=== PATIENT | male | born 1930 | race African-American/Black ===

== ENCOUNTER 2016-10-01 19:51 | Emergency (ER) | payer MEDICARE ==
[~2016-10-01] VITALS: Ht 175.3 cm; Wt 59.0 kg
[2016-10-01] MEDS ORDERED: CONTRAST GIVEN MC PRN (21:15)
[2016-10-01 21:30] LABS: BASO % 1 % (0-3); EOS % 1 % (0-3); HEMOGLOBIN 12.4 g/dL (13.0-17.5); LYMPH # 0.5 x10^3/uL (1.0-4.8); LYMPH % 14 % (24-48); MEAN CORPUSCULAR HEMOGLOBIN 33 pg (25-35); MEAN CORPUSCULAR HGB CONC 35 g/dL (31-37); MEAN CORPUSCULAR VOLUME 97 fL (79-100); MONO % 9 % (0-9); NEUT % 75 % (31-73); PLATELET COUNT 178 x10^3/uL (140-400); RED BLOOD COUNT 3.73 x10^6/uL (4.30-5.70); RED CELL DISTRIBUTION WIDTH 13.5 % (11.5-14.5); WHITE BLOOD COUNT 3.4 x10^3/uL (4.0-11.0)
[2016-10-01] MEDS ORDERED: IOHEXOL 300 MG/ML 75 ML VIAL IV ONE (21:30)
[2016-10-01 21:39] LABS: GFR 85.9; POTASSIUM 3.8 mmol/L (3.5-5.1)
[2016-10-01 21:45] LABS: ALBUMIN 3.2 g/dL (3.4-5.0); ALBUMIN/GLOBULIN RATIO 0.8 (1.0-1.7); TOTAL BILIRUBIN 0.4 mg/dL (0.2-1.0); TOTAL PROTEIN 7.4 g/dL (6.4-8.2)
--- NOTE | 2016-10-01 21:57 | ED.ADGEN ---
Past Medical History Past Medical History: GERD, Hypertension, Other Additional Past Medical Histor: high cholesterol,prostate CA Past Surgical History: Other Additional Past Surgical Histo: hernia,prostate Alcohol Use: Occasionally Drug Use: None Adult General Chief Complaint Chief Complaint: ABDOMINAL PAIN HPI HPI Patient is a 86 year old man, history of hypertension, GERD, prostate CVA, who presents to the emergency department with a complaint of sudden onset of abdominal pain which is now resolved. Patient states that several hours ago, about 40 minutes after eating a meal of ribs, he began experiencing severe lower abdominal pain. He states that he felt as though he was going to pass out due to the severity of the pain, became diaphoretic. He states he did not actually pass out, and that the pain slowly eased up and is now currently fully resolved. Patient was convinced to come to the emergency department for evaluation by his family. He denies any chest pain, any shortness of breath, any diarrhea, any weakness, numbness, tingling, injuries, sick contacts or exposures. His last bowel movement was several hours ago, he states it was normal. It occurred shortly before this pain develops. He denies any similar symptoms previously. Denies any complaints. No recent travel, surgery, or other changes. Review of Systems Review of Systems Constitutional: Denies fever or chills. [] Eyes: Denies change in visual acuity. [] HENT: Denies nasal congestion or sore throat. [] Respiratory: Denies cough or shortness of breath. [] Cardiovascular: Denies chest pain or edema. [] GI: Lower quadrant abdominal pain, now resolved. Associated with diaphoresis, and lightheadedness. : Denies dysuria. [] Musculoskeletal: Denies back pain or joint pain. [] Integument: Denies rash. [] Neurologic: Denies headache, focal weakness or sensory changes. [] Endocrine: Denies polyuria or polydipsia. [] Lymphatic: Denies swollen glands. [] Psychiatric: Denies depression or anxiety. [] Current Medications Current Medications Current Medications Medications (Trade) Dose Ordered Sig/Vance Start Time Stop Time Status Last Admin Dose Admin Info (Do NOT chart on this entry -- for MONITORING) 1 each PRN DAILY PRN 10/01/16 21:15 10/03/16 21:14 Iohexol (Omnipaque 300 Mg/ml) 75 ml 1X ONCE 10/01/16 21:30 10/01/16 21:31 DC 10/01/16 22:21 75 ML Allergies Allergies Allergies Coded Allergies Type Severity Reaction Last Updated Verified No Known Drug Allergies 06/15/13 No Physical Exam Physical Exam Constitutional: Well developed, well nourished, no acute distress, non-toxic appearance. [] HENT: Normocephalic, atraumatic, bilateral external ears normal, oropharynx moist, no oral exudates, nose normal. [] Eyes: PERRLA, EOMI, conjunctiva normal, no discharge. [] Neck: Normal range of motion, no tenderness, supple, no stridor. [] Cardiovascular:Heart rate regular rhythm, no murmur, S1, S2, no rubs or gallops. [] Lungs & Thorax: Bilateral breath sounds clear to auscultation, no wheezing, rhonchi, rales. No chest wall crepitus or tenderness. [] Abdomen: Bowel sounds normal, soft, no tenderness, no rebound, rigidity, no guarding, no masses, no pulsatile masses. [] Skin: Warm, dry, no erythema, no rash. [] Back: No tenderness, no CVA tenderness. [] Extremities: No tenderness, no cyanosis, no clubbing, ROM intact, no edema. [] Neurologic: Alert and oriented X 3, normal motor function, normal sensory function, no focal deficits noted. [] Psychologic: Affect normal, judgement normal, mood normal. [] Current Patient Data Vital Signs Vital Signs Date Time Temp Pulse Resp B/P (MAP) Pulse Ox O2 Delivery O2 Flow Rate FiO2 10/01/16 22:30 82 99 Room Air 10/01/16 22:00 128/72 (90) 10/01/16 19:53 97.5 16 97.5 Lab Values Laboratory Tests Test 10/01/16 21:25 10/01/16 21:53 White Blood Count 3.4 x10^3/uL (4.0-11.0) L Red Blood Count 3.73 x10^6/uL (4.30-5.70) L Hemoglobin 12.4 g/dL (13.0-17.5) L Hematocrit 36.0 % (39.0-53.0) L Mean Corpuscular Volume 97 fL (79-100) Mean Corpuscular Hemoglobin 33 pg (25-35) Mean Corpuscular Hemoglobin Concent 35 g/dL (31-37) Red Cell Distribution Width 13.5 % (11.5-14.5) Platelet Count 178 x10^3/uL (140-400) Neutrophils (%) (Auto) 75 % (31-73) H Lymphocytes (%) (Auto) 14 % (24-48) L Monocytes (%) (Auto) 9 % (0-9) Eosinophils (%) (Auto) 1 % (0-3) Basophils (%) (Auto) 1 % (0-3) Neutrophils # (Auto) 2.5 x10^3uL (1.8-7.7) Lymphocytes # (Auto) 0.5 x10^3/uL (1.0-4.8) L Monocytes # (Auto) 0.3 x10^3/uL (0.0-1.1) Eosinophils # (Auto) 0.0 x10^3/uL (0.0-0.7) Basophils # (Auto) 0.0 x10^3/uL (0.0-0.2) Sodium Level 140 mmol/L (136-145) Potassium Level 3.8 mmol/L (3.5-5.1) Chloride Level 104 mmol/L (98-107) Carbon Dioxide Level 28 mmol/L (21-32) Anion Gap 8 (6-14) Blood Urea Nitrogen 15 mg/dL (8-26) Creatinine 1.0 mg/dL (0.7-1.3) Estimated GFR (Cockcroft-Gault) 85.9 BUN/Creatinine Ratio 15 (6-20) Glucose Level 99 mg/dL (70-99) Lactic Acid Level 0.6 mmol/L (0.4-2.0) Calcium Level 8.0 mg/dL (8.5-10.1) L Total Bilirubin 0.4 mg/dL (0.2-1.0) Aspartate Amino Transferase (AST) 18 U/L (15-37) Alanine Aminotransferase (ALT) 18 U/L (16-63) Alkaline Phosphatase 65 U/L (46-116) Troponin I Quantitative < 0.017 ng/mL (0.000-0.055) Total Protein 7.4 g/dL (6.4-8.2) Albumin 3.2 g/dL (3.4-5.0) L Albumin/Globulin Ratio 0.8 (1.0-1.7) L Lipase 124 U/L (73-393) Urine Collection Type Unknown Urine Color Yellow Urine Clarity Clear Urine pH 7.5 Urine Specific [place] 1.015 Urine Protein Negative mg/dL (NEG-TRACE) Urine Glucose (UA) Negative mg/dL (NEG) Urine Ketones (Stick) Negative mg/dL (NEG) Urine Blood Negative (NEG) Urine Nitrite Negative (NEG) Urine Bilirubin Negative (NEG) Urine Urobilinogen Dipstick 1.0 mg/dL (0.2 mg/dL) Urine Leukocyte Esterase Negative (NEG) Urine RBC 0 /HPF (0-2) Urine WBC 0 /HPF (0-4) Urine Bacteria 0 /HPF (0-FEW) Urine Mucus Slight /LPF Laboratory Tests 10/01/16 21:25 Laboratory Tests 10/01/16 21:25 EKG EKG EC28/04/15: Sinus rhythm, heart rate 70 bpm, left axis deviation with left fascicular block noted, contour normality is noted in the anterior septal leads , with a single PVC noted, QTc is 467, LA 184, QRS of 86, no ST elevations or depressions, abnormal ECG, does not meet STEMI criteria. As interpreted by me. [ ] Radiology/Procedures Radiology/Procedures [][facility] [address] [place] [address] IMAGING REPORT Signed PATIENT: ZACH BENDER ACCOUNT: [id number] : 1930 LOCATION: ER AGE: 86 SEX: M EXAM STATUS: REG ER ORD. PHYSICIAN: GHANSHYAM HERMAN DO REASON: Abd pain PROCEDURE: CT ABD PELV W/ IV CONTRST ONLY CT SCAN OF THE ABDOMEN AND PELVIS WITH IV CONTRAST. History: Lower bowel pain after eating chicken and ribs Comparison:September 01, 2011. Procedure: Contiguous axial images of the abdomen and pelvis were performed after the administration of 75 cc of Isovue 370 IV contrast and without oral contrast. CT Abdomen with contrast: Findings: Liver: Unremarkable Spleen: Unremarkable Pancreas: Unremarkable Adrenal Glands: Unremarkable Kidneys: Unremarkable There is no mass or lymphadenopathy. There is no free air. There is no free fluid. Impression: No acute findings. End Impression CT Pelvis with Contrast: Findings: The urinary bladder appears normal. There is no free fluid. There is no lymphadenopathy. The appendix is normal. Impression: No acute findings. PQRS Compliance Statement: One or more of the following individualized dose reduction techniques were utilized for this examination: 1. Automated exposure control 2. Adjustment of the mA and/or kV according to patient size 3. Use of iterative reconstruction technique Electronically signed by: Chelsey Lowe III, MD (10/01/2016 10:41 PM) DICTATED and SIGNED BY: CHELSEY LOWE III, MD DATE: 10/01/162236 CC: GHANSHYAM HERMAN DO; EARNEST MCCALL Jr, MD ~ Course & Med Decision Making Course & Med Decision Making Pertinent Labs and Imaging studies reviewed. (See chart for details) At this time the patient denies all complaints, however his family expresses extreme concern over his condition a few hours ago. Patient states that he did feel as though he might pass out out, he was very pale at the time, and was clutching his stomach. Patient states he has had no similar symptoms previously , however he is agreeable to an evaluation in the emergency department due to his family's concerns. Due to the severity of the patient's symptoms, and patient's age, patient is agreeable to receiving laboratory studies and imaging in the ED. CT of the abdomen and pelvis obtained, not reveal any evidence of concerning findings. Laboratory studies were also unremarkable. A repeat troponin was obtained at 3 hours into the patient's visit, which remained negative. Patient is now 6 hours out from onset of symptoms, and remains asymptomatic in the ED with family at bedside. I did discuss these findings with patient and family, patient was ambulated in the emergency department, and laboratory trial proceed without of occult the. He states that he continues to be asymptomatic in the ED and is ready to go home. We did discuss concerning symptoms that would prompt return to the emergency department, importance of follow-up with primary care provider, and general medical wellness. Patient and family at bedside voiced understanding and agreement, to follow-up with primary care provider, and return to the ED if concerning symptoms develop. Patient discharged home in stable condition with plan as above. Dragon Disclaimer Dragon Disclaimer This electronic medical record was generated, in whole or in part, using a voice recognition dictation system. Departure Impression: Primary Impression: Abdominal pain Disposition: 01 HOME, SELF-CARE Condition: IMPROVED GHANSHYAM HERMAN DO Oct 01, 2016 21:56
[2016-10-01 22:00] VITALS: BP 128/72
[2016-10-01 22:00] LABS: BILIRUBIN,URINE NEGATIVE (NEG); GLUCOSE,URINE NEGATIVE (NEG); NITRITE,URINE NEGATIVE (NEG); PH,URINE 7.5; PROTEIN,URINE NEGATIVE (NEG-TRACE)
[2016-10-01 22:06] LABS: BACTERIA,URINE 0 /HPF (0-FEW); RBC,URINE 0 /HPF (0-2); WBC,URINE 0 /HPF (0-4)
--- NOTE | 2016-10-01 22:45 | RAD ---
CT SCAN OF THE ABDOMEN AND PELVIS WITH IV CONTRAST. History: Lower bowel pain after eating chicken and ribs Comparison:September 01, 2011. Procedure: Contiguous axial images of the abdomen and pelvis were performed after the administration of 75 cc of Isovue 370 IV contrast and without oral contrast. CT Abdomen with contrast: Findings: Liver: Unremarkable Spleen: Unremarkable Pancreas: Unremarkable Adrenal Glands: Unremarkable Kidneys: Unremarkable There is no mass or lymphadenopathy. There is no free air. There is no free fluid. Impression: No acute findings. End Impression CT Pelvis with Contrast: Findings: The urinary bladder appears normal. There is no free fluid. There is no lymphadenopathy. The appendix is normal. Impression: No acute findings. PQRS Compliance Statement: One or more of the following individualized dose reduction techniques were utilized for this examination: 1. Automated exposure control 2. Adjustment of the mA and/or kV according to patient size 3. Use of iterative reconstruction technique Electronically signed by: Gm Powers III, MD (10/01/2016 10:41 PM)
--- NOTE | 2016-10-02 06:31 | EKG ---
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
== END 2016-10-01 23:55 | disposition home or self-care (01) ==
LOC: ER 19:51
DX: R10.32 Left lower quadrant pain (principal); R61 Generalized hyperhidrosis; R42 Dizziness and giddiness; K21.9 Gastro-esophageal reflux disease without esophagitis; I10 Essential (primary) hypertension; E78.00 Pure hypercholesterolemia, unspecified
CPT/HCPCS: 36415; 74177; 80053; 81001; 83605; 83690; 84484; 85027; 93005; 99285; Q9967

== ENCOUNTER → 2020-03-16 | Outpatient (CLI) | payer MEDICARE ==
[~2020-03-16] MED LIST: CONTRAST GIVEN. MC PRN; IOHEXOL 300 MG/ML 100ML VIAL. IV ONE
--- NOTE | 2020-03-16 11:52 | RAD ---
Contrast-enhanced CT scan of the pelvis compared to CT of the abdomen and pelvis dated October 01, 2016 for prostate malignancy. TECHNIQUE: Contiguous axial CT images are obtained through the pelvis following administration of IV contrast in the arterial phase. Sagittal and coronal reformations are evaluated. FINDINGS: Evaluation of large and small bowel is limited by lack of oral contrast. No gross abnormalities are identified however. The urinary bladder is fluid distended. In the right hemipelvis, there may be a trace amount of free fluid, though this is difficult to distinguish from fluid-filled loops of small bowel. No suspicious adenopathy is seen. No pelvic masses are evident. Moderate multifocal atherosclerosis is seen with no aneurysms or hemodynamically significant stenoses within the visualized arteries. There is a large right and small left hydrocele. There are calcifications in the scrotum bilaterally which may reflect calcified epididymitis or testicular foci. These could be better characterized with testicular ultrasound. The prostate appears diminutive and is difficult to delineate from the adjacent soft tissues given the arterial phase of IV contrast. Perhaps atrophic or surgically absent. Certainly no large prostatic masses. Bones are diffusely osteopenic. Small sclerotic focus at L5 is unchanged since 2017 and is most consistent with small bone island. No definite osteoblastic or osteolytic bone lesions. IMPRESSION: 1. Poorly depicted prostate which may be atrophic or surgically absent. 2. No evidence of metastatic disease within the pelvis. 3. Bilateral hydroceles, right greater than left. 4. Fluffy cloudlike calcifications in proximity to both testicles, perhaps arising from the epididymi or testes. These could be better characterized with scrotal ultrasound if clinically warranted. PQRS Compliance Statement: One or more of the following individualized dose reduction techniques were utilized for this examination: 1. Automated exposure control 2. Adjustment of the mA and/or kV according to patient size 3. Use of iterative reconstruction technique Electronically signed by: Tj Puri MD (03/16/2020 11:49 AM) [id number]
--- NOTE | 2020-03-16 17:13 | RAD ---
Examination: BONE SCAN WHOLE BODY History: Prostate cancer Comparison/Correlation: 06/15/2013 bilateral tibia-fibula x-ray exam, 10/01/2016 CT abdomen and pelvis with contrast, 03/16/2020 CT pelvis with contrast Findings: 25 mCi technetium 99m MDP was intravenously administered for purposes of total body bone scintigraphy. Uptake of radiotracer involving visualized head and neck is unremarkable. Bony thorax and pelvis have unremarkable uptake. Kidneys and urinary bladder are visualized. Upper extremities are unremarkable other than findings of degenerative change or stranding age. Left knee joint uptake compatible with degenerative changes present. Uptake involving the left fibular head/neck which may relate to prior trauma is evident. No suspicious abnormal uptake involving the right lower extremity. No suspicious photopenic lesions. Impression: Uptake at the left fibular head/neck junction is present. Correlate with previous trauma. Correlate with 4 view x-ray exam of the left knee for further evaluation. No definite findings to suggest bony metastatic involvement. Electronically signed by: Jacob Urrutia MD (03/16/2020 5:10 PM) [id number]
== END ==
LOC: NM 09:34
PROVIDERS: ATTEND Urology
DX: N43.2 Other hydrocele (principal); M17.12 Unilateral primary osteoarthritis, left knee; Z90.79 Acquired absence of other genital organ(s); Z85.46 Personal history of malignant neoplasm of prostate
CPT/HCPCS: 72193; 78306; A9503; Q9967